=== PATIENT | female | born 1985 | race Caucasian/White ===

== ENCOUNTER 2019-02-28 00:31 | Inpatient (IN) | payer MEDICAID ==
[2019-02-28] MEDS ORDERED: HALOPERIDOL 5 MG TABLET PO PRN ×2 (02:00→03:30)
[2019-02-28] MEDS ORDERED: LORazepam 2 MG TABLET PO PRN ×2 (02:00→03:30)
[2019-02-28] MEDS ORDERED: ZOLPIDEM TARTRATE 10 MG TABLET PO PRN ×2 (02:00→03:30)
[2019-02-28] MEDS ORDERED: PETROLATUM,WHITE 28 GM JELLY TP PRN (13:30)
[2019-02-28] MEDS ORDERED: ONDANSETRON HCL 4 MG TABLET PO PRN (13:30)
[2019-02-28] MEDS ORDERED: CloNIDine HCL 0.1 MG TABLET PO PRN (13:30)
[2019-02-28] MEDS ORDERED: NICOTINE 14 MG/24 HOUR PATCH TD PRN (13:30)
[2019-02-28] MEDS ORDERED: LOPERAMIDE HCL 2 MG CAPSULE PO PRN (13:30)
[2019-02-28] MEDS ORDERED: ACETAMINOPHEN 325 MG TABLET PO PRN (13:30)
[2019-02-28] MEDS ORDERED: IBUPROFEN 400 MG TABLET PO PRN (13:30)
[2019-02-28] MEDS ORDERED: MAG HYDROX/AL HYDROX/SIMETH ES 30 ML SUSPENSION UDCUP PO PRN (13:30)
[2019-02-28] MEDS ORDERED: DOCUSATE SODIUM 100 MG CAPSULE PO PRN (13:30)
[2019-02-28] MEDS ORDERED: MAGNESIUM HYDROXIDE SUSPENSION 30 ML UDCUP PO PRN (13:30)
[2019-02-28] MEDS ORDERED: GuaiFENesin/D-METHORPHAN [SUGAR-FREE] 200-20MG/10 ML SYRUP UDCUP PO PRN (13:30)
[2019-02-28] MEDS ORDERED: ALBUTEROL SULFATE HFA 90 MCG/PUFF 8 GM INHALER IH PRN (13:30)
[2019-02-28 16:08] VITALS: BP 121/86
[2019-03-01] MEDS ORDERED: INFLUENZA VIRUS VACCINE QVS 2019-20 (3YR+)/PF 60 MCG/0.5 ML SYRINGE IM ONE (00:45)
[2019-03-01 05:52] VITALS: BP 140/68
[2019-03-01 07:06] LABS: BASOPHILS % (AUTO) 0.7 % (0.0-2.0); EOSINOPHILS % (AUTO) 1.4 % (1.0-6.0); HEMOGLOBIN 14.5 g/dL (12.0-16.0); LYMPHOCYTES # (AUTO) 1.7 K/uL (1.0-4.8); LYMPHOCYTES % (AUTO) 31.3 % (22.0-44.0); MEAN CORPUSCULAR HEMOGLOBIN 31.5 pg (26.0-34.0); MEAN CORPUSCULAR HGB CONC 33.6 G/dL (31.0-37.0); MEAN CORPUSCULAR VOLUME 94 fL (80-100); MONOCYTES # (AUTO) 0.6 K/uL (0.1-1.0); MONOCYTES % (AUTO) 11.6 % (2.0-9.0); NEUTROPHILS # (AUTO) 2.9 K/uL (1.8-7.7); PLATELET COUNT (AUTO) 177 K/uL (150-450); RED BLOOD CELL COUNT(AUTO) 4.59 MIL/uL (4.00-5.20)
[2019-03-01 07:10] LABS: APPEARANCE,URINE CLEAR (CLEAR); BILIRUBIN,URINE NEGATIVE (NEGATIVE); GLUCOSE, URINE (UA) NEGATIVE (NEGATIVE); KETONES,URINE NEGATIVE (NEGATIVE); LEUKOCYTE ESTERASE ,URINE NEGATIVE (NEGATIVE); NITRATE,URINE NEGATIVE (NEGATIVE); OCCULT BLOOD,URINE NEGATIVE (NEGATIVE); PROTEIN,URINE NEGATIVE (NEGATIVE); UROBILINOGEN,URINE 0.2 mg/dL (<=1.0)
[2019-03-01 07:15] LABS: AMPHET/METH SCREEN,URINE NEGATIVE (NEGATIVE); BARBITURATE SCREEN, URINE NEGATIVE (NEGATIVE); BENZODIAZEPINES SCREEN,URINE NEGATIVE (NEGATIVE); CANNABINOID SCREEN,URINE NEGATIVE (NEGATIVE); COCAINE SCREEN,URINE NEGATIVE (NEGATIVE); METHADONE SCREEN, URINE NEGATIVE (NEGATIVE); OPIATE SCREEN,URINE NEGATIVE (NEGATIVE)
[2019-03-01 07:18] LABS: PHENCYCLIDINE SCREEN,URINE NEGATIVE (NEGATIVE)
[2019-03-01 07:19] LABS: HEMOGLOBIN A1C 4.2 % (4.5-6.2)
[2019-03-01 07:39] LABS: ALANINE AMINOTRANSFERASE 19 U/L (12-78); ALBUMIN 3.7 g/dL (3.4-5.0); ALKALINE PHOSPHATASE 37 U/L (46-116); ANION GAP 12 mmol/L (8-16); ASPARTATE AMINOTRANSFERASE 33 U/L (15-37); BILIRUBIN,TOTAL 0.6 mg/dL (0.1-1.0); CALCIUM, TOTAL 8.6 mg/dL (8.8-10.5); CARBON DIOXIDE 25 mmol/L (22-29); CHLORIDE 103 mmol/L (98-107); CHOL/HDL RATIO 1.7 (3.9-5.7); CHOLESTEROL 135 mg/dL (131-200); CREATININE 0.67 mg/dL (0.60-1.30); GLOMERULAR FILTR. RATE CALC > 60 mL/min (>60); GLUCOSE,RANDOM 84 mg/dL (70-110); HDL CHOLESTEROL 81 mg/dL (40-60); LDL CHOL (CALC.) 43 mg/dL (0-130); POTASSIUM 3.6 mmol/L (3.5-5.1); SODIUM SERUM 140 mmol/L (136-145); THYROID STIMULATING HORMONE 1.57 uIU/mL (0.36-3.74); TOTAL PROTEIN, SERUM 6.6 g/dL (6.4-8.2); TRIGLYCERIDES 53 mg/dL (15-150); UREA NITROGEN, BLOOD 4 mg/dL (7-18)
[2019-03-01 08:12] VITALS: BP 121/78
[2019-03-01 16:33] VITALS: BP 138/101
[2019-03-02 06:22] VITALS: BP 115/63
[2019-03-02 08:23] VITALS: BP 121/85
[2019-03-02 16:22] VITALS: BP 139/78
[2019-03-03 06:21] VITALS: BP 118/71
[2019-03-03 08:10] VITALS: BP 131/85
== END 2019-03-03 13:00 | disposition home or self-care (01) | DRG 751 ==
LOC: B3A 04:11
PROVIDERS: ADMIT Psychiatry & Neurology Psychiatry; ATTEND Psychiatry & Neurology Psychiatry
DX: F29 Unspecified psychosis not due to a substance or known physiological condition (principal); G44.209 Tension-type headache, unspecified, not intractable; R10.13 Epigastric pain
CPT/HCPCS: 80307; 83036; 84443; 90686